=== PATIENT | female | born 1930 | race Caucasian/White ===

== ENCOUNTER 2016-11-06 15:57 | Emergency (ER) | payer MEDICARE ==
[~2016-11-06] VITALS: Ht 165.1 cm; Wt 64.1 kg
[~2016-11-06 15:57] MED LIST: CAND16TA2 PO; ESOM40CA PO; RIVA15TA PO
[2016-11-06 16:11] VITALS: BP 195/96
[2016-11-06] MEDS ORDERED: LIDOCAINE 1%, 20ML SQ ONE (16:30)
[2016-11-06] MEDS ORDERED: FLEC50TA25 PO (16:52)
[2016-11-06] MEDS ORDERED: LIDOCAINE 1%, 20ML ONE (17:02)
[2016-11-06] MEDS ORDERED: BACITRACIN ZINC OINT 500U/GM, 0.9 GM ONE ×2 (18:08→18:14)
== END 2016-11-06 18:25 | disposition home or self-care (01) ==
LOC: ED 18:16
DX: S01.511A Laceration without foreign body of lip, initial encounter (principal); S00.31XA Abrasion of nose, initial encounter; E78.5 Hyperlipidemia, unspecified; I11.9 Hypertensive heart disease without heart failure; Z90.49 Acquired absence of other specified parts of digestive tract; Z90.710 Acquired absence of both cervix and uterus; W01.0XXA Fall on same level from slipping, tripping and stumbling without subsequent striking against object, initial encounter; Y93.89 Activity, other specified; Y99.9 Unspecified external cause status; Y92.410 Unspecified street and highway as the place of occurrence of the external cause
CPT/HCPCS: 12011; 99283

== ENCOUNTER 2018-11-24 06:48 | Emergency (ER) | payer MEDICARE ==
[~2018-11-24] VITALS: Ht 165.1 cm; Wt 51.8 kg
[~2018-11-24 06:48] MED LIST changes: -CAND16TA2 PO; +CAND16TA25 PO; +FLEC50TA25 PO
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
[2018-11-24] MEDS ORDERED: CAND1TAB13 PO (07:21)
[2018-11-24] MEDS ORDERED: DIPH,PERTUSS(ACELL),TET VAC/PF 0.5 ML IM-VACC ONE (07:30)
[2018-11-24 07:33] LABS: BASOPHILS # (AUTO) 0.01 x10^3/uL (0-0.1); BASOPHILS % (AUTO) 0 % (0-1); EOSINOPHILS # (AUTO) 0.03 x10^3/uL (0-0.4); EOSINOPHILS % (AUTO) 1 % (1-7); LYMPHOCYTES # (AUTO) 0.71 x10^3/uL (1-3.4); LYMPHOCYTES % (AUTO) 15 % (22-44); MD NO; MEAN CORPUSCULAR HEMOGLOBIN 30.4 pg (27.0-34.8); MEAN CORPUSCULAR HGB CONC 32.5 g/dL (32.4-35.8); MEAN CORPUSCULAR VOLUME 93.5 fL (80-100); MONOCYTES # (AUTO) 0.32 x10^3/uL (0.2-0.8); MONOCYTES % (AUTO) 7 % (2-9); NEUTROPHILS # (AUTO) 3.79 x10^3/uL (1.8-6.8); NEUTROPHILS % (AUTO) 78 % (42-75); PLATELET COUNT 189 x10^3/uL (130-400); RED BLOOD COUNT 4.04 x10^6/uL (3.82-5.3); RED CELL DISTRIBUTION WIDTH 13.8 % (9.6-15.2)
--- NOTE | 2018-11-24 07:49 | NUR ---
PT BACK FROM XRAY, DRESSING REMOVED, PULSES REMAIN INTACT. ED PROVIDER IN TO APPLY DERMABOND
--- NOTE | 2018-11-24 08:28 | NUR ---
Harika mack in EDM - 11/24/18 at 0829 by RADHA LATE ENTRY 0810. PT BACK FROM CT, AWAITING RESULTS.
[2018-11-24 09:02] VITALS: BP 164/91
--- NOTE | 2018-11-24 09:03 | NUR ---
PT GIVEN DISCHARGE INSTRUCTIONS, UNDERSTANDING STATED BY PT AND . ALL BELONGINGS WITH PT ON DISCHARGE. PT WALKED TO CHECK OUT IN CARE OF
== END 2018-11-24 09:06 | disposition home or self-care (01) ==
LOC: ED 08:55
DX: S81.802A Unspecified open wound, left lower leg, initial encounter (principal); I10 Essential (primary) hypertension; X58.XXXA Exposure to other specified factors, initial encounter; Y93.89 Activity, other specified; Y92.009 Unspecified place in unspecified non-institutional (private) residence as the place of occurrence of the external cause; Y99.8 Other external cause status
CPT/HCPCS: 36415; 85025; 90471; 90715; 99284